=== PATIENT | male | born 1965 | race African-American/Black ===

== ENCOUNTER 2016-06-14 08:55 | Emergency (ER) | payer OTHER ==
[~2016-06-14] VITALS: Ht 188 cm; Wt 98.8 kg
[~2016-06-14 08:55] MED LIST: DICY1TAB26 PO; PENI500T PO; ULTR50TA PO; ZOFR4TAB3 SL
[2016-06-14 09:05] VITALS: BP 126/97; PULSE 80; RESP 16; TEMP 98.1; O2SAT 97
--- NOTE | 2016-06-14 09:24 | PD ---
HPI Chief Complaint: Injury Time Seen by Provider: 09:17 Travel History International Travel<30 days: No Contact w/Intl Traveler<30days: No Traveled to known affect area: No History of Present Illness HPI 50-year-old male presents with left elbow pain after he fell on it earlier today. He did not hit his head or black out. He denies other concurrent complaints. Pain is worse with movement and goes down his arm. He denies other modifying factors. Quality pain is sharp. Severity is moderate. He denies taking blood thinner medication. PFSH Past Medical History Arthritis: No Asthma: No Autoimmune Disease: No Blood Disorders: No Bipolar Disorder: Yes Anxiety: Yes Depression: Yes Heart Rhythm Problems: No Cancer: No Cardiovascular Problems: No High Cholesterol: No Chemotherapy: No Chest Pain: No Congestive Heart Failure: No COPD: No Cerebrovascular Accident: No Diabetes: No Diminished Hearing: No Endocrine: No Gastrointestinal Disorders: No GERD: No Glaucoma: No Genitourinary: No Headaches: Yes Hepatitis: No Hiatal Hernia: No Hypertension: No Kidney Stones: No Musculoskeletal: Yes (REPORTS CHRONIC BACK PAIN) Neurologic: No Psychiatric: Yes Reproductive: No Respiratory: Yes (BRONCHITIS) Myocardial Infarction: Yes Radiation Therapy: No Renal Failure: No Schizophrenia: Yes Seizures: No Sickle Cell Disease: No Sleep Apnea: No Thyroid Disease: No Ulcer: No Tetanus Vaccination: < 5 Years Past Surgical History Surgical History: No Previous Surgery AICD: No Pacemaker: No Other Surgery: No Social History Alcohol Use: No Tobacco Use: Yes (04/22 PPD ) Substance Use: Yes (smokes marijuana, history of cocaine, denies IV drug abuse) Allergies-Medications (Allergen,Severity, Reaction): Coded Allergies: Dust (Verified Allergy, Severe, SNEEZE RUNNY NOS4E STUFFY, 06/14/16) Ibuprofen (Verified Allergy, Severe, STOMACH PAIN, 06/14/16) Uncoded Allergies: DARVOCET (Allergy, Severe, 11/11/11) Reported Meds & Prescriptions Reported Meds & Active Scripts Active Percocet (Oxycodone-Acetaminophen) 5-325 mg Tab 1 Tab PO Q6H PRN Review of Systems Except as stated in HPI: all other systems reviewed are Neg Physical Exam Narrative General: 50 y/o patient in no apparent distress Skin: trauma noted to left elbow with swelling Eyes: Pupils equal NECK: no pain with palpation, nexus criteria negative Cardiovascular: Regular rate and rhythm Respiratory: Normal respiratory effort noted Abdomen: soft, nontender, nondistended Extremities: Pain with palpation of left elbow, no lacerations over, neurovascularly intact, no pain with palpation of other joints Neuro: awake, alert, sensation and motor grossly intact Data Data Last Documented VS Vital Signs Date Time Temp Pulse Resp B/P Pulse Ox O2 Delivery O2 Flow Rate FiO2 06/14/16 09:05 98.1 80 16 126/97 97 Orders Elbow, Complete (4 Vws) (06/14/16 09:19) Forearm (2vws) (06/14/16 09:19) Ketorolac Inj (Toradol Inj) (06/14/16 09:30) Splint Or Brace Apply/Monitor (06/14/16 11:35) MDM Medical Decision Making Medical Screen Exam Complete: Yes Emergency Medical Condition: Yes Medical Record Reviewed: Yes (past history confirmed) Interpretation(s) Last 24 hours Impressions Radius/Ulna X-Ray 06/14/16918 Signed Impressions: Service Date/Time: Tuesday, June 14, 2016 10:54 - CONCLUSION: Normal examination for a patient of this age. Kieran Steiner MD Elbow X-Ray 06/14/16918 Signed Impressions: Service Date/Time: Tuesday, June 14, 2016 10:51 - CONCLUSION: Normal examination for a patient of this age. Kieran Steiner MD Differential Diagnosis Fracture, strain, sprain Narrative Course We'll check x-ray and dose with Toradol and reevaluate X-ray without fracture, patient states he still having significant pain, will provide with Toradol prescription for home and place and splint for possible nondisplaced radial head fracture. He understands he should follow-up in one week for repeat x-ray through his primary care physician for recheck. Given return instructions Diagnosis Primary Impression: Elbow strain Qualified Code: S56.912A - Elbow strain, left, initial encounter Patient Instructions: General Instructions Additional Instructions: return as needed, follow with primary in one week for repeat xray and recheck, percocet as needed for severe pain Med/Other Pt SpecificInfo: Prescription(s) given, No Change to Meds Scripts Oxycodone-Acetaminophen (Percocet)5-325 mg Tab1 Tab PO Q6H PRN (PAIN) #15 TAB Prov:Ladi Graves MD 06/14/16 Disposition: 01 DISCHARGE HOME Condition: Stable Ladi Graves MD Jun 14, 2016 09:24
[2016-06-14] MEDS ORDERED: KETOROLAC TROMETHAMINE 60 MG/2 ML (IM) VIAL IM ONE (09:30)
--- NOTE | 2016-06-14 11:08 | RADHPO ---
EXAM DATE/TIME: 06/14/2016 10:51 [facility] COMPARISON: No previous studies available for comparison. INDICATIONS : Left elbow pain post fall down stairs. MEDICAL HISTORY : Myocardial infarction. SURGICAL HISTORY : None. ENCOUNTER: Initial ACUITY: 1 day PAIN SCORE: 10/10 LOCATION: Left elbow FINDINGS: Multiple view examination of the left elbow demonstrates no soft tissue swelling, joint effusion, or fracture. The osseous structures are in normal alignment. Bony mineralization is normal. CONCLUSION: Normal examination for a patient of this age. Kieran Steiner MD on June 14, 2016 at 11:06 Board Certified Radiologist. This report was verified electronically.
--- NOTE | 2016-06-14 11:09 | RADHPO ---
EXAM DATE/TIME: 06/14/2016 10:54 [facility] COMPARISON: No previous studies available for comparison. INDICATIONS : Left forearm. MEDICAL HISTORY : Myocardial infarction. SURGICAL HISTORY : None. ENCOUNTER: Initial ACUITY: 1 day PAIN SCORE: 10/10 LOCATION: Left forearm FINDINGS: Two view examination of the left forearm demonstrates no evidence of fracture or dislocation. Bony m ineralization is normal. The soft tissue structures are intact. CONCLUSION: Normal examination for a patient of this age. Kieran Steiner MD on June 14, 2016 at 11:07 Board Certified Radiologist. This report was verified electronically.
[2016-06-14] MEDS ORDERED: PERC5TAB12 PO (11:34)
== END 2016-06-14 12:01 | disposition home or self-care (01) ==
LOC: PHEFT 08:55
DX: S56.912A Strain of unspecified muscles, fascia and tendons at forearm level, left arm, initial encounter (principal); W19.XXXA Unspecified fall, initial encounter
CPT/HCPCS: 29105; 73080; 73090; 96372; 99283; J1885

== ENCOUNTER 2016-06-24 13:20 | Emergency (ER) | payer OTHER ==
[~2016-06-24] VITALS: Ht 172.7 cm; Wt 90.5 kg
[~2016-06-24 13:20] MED LIST changes: -DICY1TAB26 PO; -PENI500T PO; +PERC5TAB12 PO; -ULTR50TA PO; -ZOFR4TAB3 SL
[2016-06-24 13:28] VITALS: BP 138/83; PULSE 90; RESP 16; TEMP 98.5; O2SAT 95
--- NOTE | 2016-06-24 14:29 | PD ---
HPI Chief Complaint: Wound/Suture/Staple Re-Check Time Seen by Provider: 14:20 Travel History International Travel<30 days: No Contact w/Intl Traveler<30days: No Traveled to known affect area: No History of Present Illness HPI 50-year-old male presents for left elbow recheck. The patient was seen here on June 14 after falling on some stairs and landing on his left elbow. He had x-rays of left elbow and forearm which revealed no acute abnormalities. There is concern for possible occult radial head fracture and so he was placed in a splint and advised to follow-up with a primary care physician in one week for recheck. He presents now for recheck. He continues to have some pain in left elbow with has decreased. He is no longer wearing the splints because he says that his dog chewed the splint off. He denies any new injuries. He has no other complaints. PFSH Past Medical History Arthritis: No Asthma: No Autoimmune Disease: No Blood Disorders: No Bipolar Disorder: Yes Anxiety: Yes Depression: Yes Heart Rhythm Problems: No Cancer: No Cardiovascular Problems: No High Cholesterol: No Chemotherapy: No Chest Pain: No Congestive Heart Failure: No COPD: No Cerebrovascular Accident: No Diabetes: No Diminished Hearing: No Endocrine: No Gastrointestinal Disorders: No GERD: No Glaucoma: No Genitourinary: No Headaches: Yes Hepatitis: No Hiatal Hernia: No Hypertension: No Kidney Stones: No Musculoskeletal: Yes (REPORTS CHRONIC BACK PAIN) Neurologic: No Psychiatric: Yes Reproductive: No Respiratory: Yes (BRONCHITIS) Myocardial Infarction: Yes Radiation Therapy: No Renal Failure: No Schizophrenia: Yes Seizures: No Sickle Cell Disease: No Sleep Apnea: No Thyroid Disease: No Ulcer: No Influenza Vaccination: No ?: Not Past Surgical History Surgical History: No Previous Surgery AICD: No Pacemaker: No Other Surgery: No Social History Alcohol Use: Yes (OCC) Tobacco Use: Yes (1/2 PPD ) Substance Use: Yes (smokes marijuana, history of cocaine, denies IV drug abuse) Allergies-Medications (Allergen,Severity, Reaction): Coded Allergies: Darvocet-N 100 (Verified Allergy, Severe, 06/24/16) Dust (Verified Allergy, Severe, SNEEZE RUNNY NOS4E STUFFY, 06/24/16) Ibuprofen (Verified Allergy, Severe, STOMACH PAIN, 3/6/17) Reported Meds & Prescriptions Reported Meds & Active Scripts Active Percocet (Oxycodone-Acetaminophen) 5-325 mg Tab 1 Tab PO Q6H PRN Review of Systems Musculoskeletal: Positive: Pain, No: Limited ROM Skin: Positive Other (no open wounds or bruising.) Physical Exam Narrative GENERAL: Well-developed well-nourished male sleeping upon initial examination but arousable. SKIN: Warm and dry. No bruising or soft tissue swelling CARDIOVASCULAR: Regular rate and rhythm. No murmur appreciated. RESPIRATORY: No accessory muscle use. Clear to auscultation. Breath sounds equal bilaterally. Extremities: Some tenderness to palpation to the lateral aspect of left ankle joint. No joint effusion. The patient maintains full range of motion of the left elbow. Data Data Last Documented VS Vital Signs Date Time Temp Pulse Resp B/P Pulse Ox O2 Delivery O2 Flow Rate FiO2 06/24/16 13:28 98.5 90 16 138/83 95 Orders Elbow, Complete (4 Vws) (06/24/16 ) [facility] Medical Decision Making Medical Screen Exam Complete: Yes Emergency Medical Condition: Yes Medical Record Reviewed: Yes Differential Diagnosis Healing occult radial head fracture, contusion, bursitis, strain, sprain Narrative Course Repeat x-ray reveals no evidence of a healing occult radial head fracture, no periosteal reaction or bone callus. Likely the patient sprained his elbow. He is stable for discharge. Diagnosis Primary Impression: Sprain of left elbow Qualified Code: S53.402A - Sprain of left elbow, initial encounter Additional Instructions: Follow-up with primary care physician if symptoms persist. Return for any emergent medical conditions. Med/Other Pt SpecificInfo: No Change to Meds Disposition: 01 DISCHARGE HOME Condition: Stable Marques Sheehan Jun 24, 2016 14:29
--- NOTE | 2016-06-24 15:12 | RADHPO ---
EXAM DATE/TIME: 06/24/2016 14:37 [facility] COMPARISON: ELBOW LEFT COMPLETE (4 VWS), June 14, 2016, 10:51. INDICATIONS : Pain from fall. MEDICAL HISTORY : None. SURGICAL HISTORY : None. ENCOUNTER: Subsequent ACUITY: 1 week PAIN SCORE: 5/10 LOCATION: Left elbow. FINDINGS: Multiple view examination of the left elbow demonstrates no soft tissue swelling, joint effusion, or fracture. The osseous structures are in normal alignment. Bony mineralization is normal. CONCLUSION: 1. Negative examination of the elbow. Jorge Drake MD on June 24, 2016 at 15:10 Board Certified Radiologist. This report was verified electronically.
== END 2016-06-24 15:33 | disposition home or self-care (01) ==
LOC: PHED 13:20 → PHEFT 15:33
DX: S53.402A Unspecified sprain of left elbow, initial encounter (principal); W10.9XXA Fall (on) (from) unspecified stairs and steps, initial encounter
CPT/HCPCS: 73080; 99283

== ENCOUNTER 2016-07-11 11:46 | Emergency (ER) | payer OTHER ==
[~2016-07-11] VITALS: Ht 188 cm; Wt 100.0 kg
[2016-07-11 11:47] VITALS: BP 147/87; PULSE 88; RESP 15; TEMP 98.2; O2SAT 98
--- NOTE | 2016-07-11 12:06 | PD ---
HPI Chief Complaint: Cold / Flu Symptoms Time Seen by Provider: 11:58 Travel History International Travel<30 days: No Contact w/Intl Traveler<30days: No Traveled to known affect area: No History of Present Illness HPI This is a 50-year-old male who presents to the emergency department having reportedly had a fall yesterday off of a ladder that was 15 feet tall. He reports that he doesn't think he hit his head in its not bothering him. The only thing that is bothering him is his right shoulder. He reports moderate severity pain in his right shoulder, constant, worse with movement, improved with rest, described as a "pinching sensation". He does say he has some chest discomfort but he thinks this is from his cold. He's had a runny nose and a cough for several days. He Thinks that is what made him fall because he sneezed and then he fell off of the ladder. PFSH Past Medical History Arthritis: No Asthma: No Autoimmune Disease: No Blood Disorders: No Bipolar Disorder: Yes Anxiety: Yes Depression: Yes Heart Rhythm Problems: No Cancer: No Cardiovascular Problems: No High Cholesterol: No Chemotherapy: No Chest Pain: No Congestive Heart Failure: No COPD: No Cerebrovascular Accident: No Diabetes: No Diminished Hearing: No Endocrine: No Gastrointestinal Disorders: No GERD: No Glaucoma: No Genitourinary: No Headaches: Yes Hepatitis: No Hiatal Hernia: No Hypertension: No Kidney Stones: No Musculoskeletal: Yes (REPORTS CHRONIC BACK PAIN) Neurologic: No Psychiatric: Yes Reproductive: No Respiratory: Yes (BRONCHITIS) Myocardial Infarction: Yes Radiation Therapy: No Renal Failure: No Schizophrenia: Yes Seizures: No Sickle Cell Disease: No Sleep Apnea: No Thyroid Disease: No Ulcer: No Past Surgical History AICD: No Pacemaker: No Other Surgery: No Social History Alcohol Use: Yes (OCC) Tobacco Use: Yes (1/2 PPD ) Substance Use: Yes (smokes marijuana, history of cocaine, denies IV drug abuse) Allergies-Medications (Allergen,Severity, Reaction): Coded Allergies: Darvocet-N 100 (Verified Allergy, Severe, 07/11/16) Dust (Verified Allergy, Severe, SNEEZE RUNNY NOS4E STUFFY, 07/11/16) Ibuprofen (Verified Allergy, Severe, STOMACH PAIN, 07/11/16) Reported Meds & Prescriptions Reported Meds & Active Scripts Active Percocet (Oxycodone-Acetaminophen) 5-325 mg Tab 1 Tab PO Q6H PRN Review of Systems Except as stated in HPI: all other systems reviewed are Neg Physical Exam Narrative GENERAL:Well appearing, no acute distress SKIN: Warm and dry. HEAD: Atraumatic. Normocephalic. EYES: Pupils equal and round. No injection or drainage. ENT: Moist mucous membranes NECK: Trachea midline. No cervical spine tenderness and full painless range of motion of the neck. CARDIOVASCULAR: Regular rate and rhythm. No murmur appreciated. RESPIRATORY: Clear to auscultation. Breath sounds equal bilaterally. GASTROINTESTINAL: Abdomen soft, non-tender, nondistended. MUSCULOSKELETAL: Some tenderness to palpation over the proximal humerus and right clavicle. Full range of motion of the right shoulder. No obvious deformities. No focal tenderness to the thoracic or lumbar spine. NEUROLOGICAL: Awake and alert. No obvious cranial nerve deficits. Moving all extremities. PSYCHIATRIC: Appropriate mood and affect; insight and judgment normal. Data Data Last Documented VS Vital Signs Date Time Temp Pulse Resp B/P Pulse Ox O2 Delivery O2 Flow Rate FiO2 07/11/16 11:47 98.2 88 15 147/87 98 Orders Chest, Single Ap (07/11/16 ) Shoulder, Complete (>2vws) (07/11/16 ) MDM Medical Decision Making Medical Screen Exam Complete: Yes Emergency Medical Condition: Yes Interpretation(s) Afebrile, no tachycardia, hypertensive Differential Diagnosis Proximal humerus fracture, shoulder dislocation, clavicle fracture, pneumothorax , rib fracture Narrative Course This is a 50-year-old male who presents to the emergency department reportedly having fallen off a 15 foot ladder yesterday. He is complaining of some shoulder pain. Otherwise he really has no complaints. His exam is inconsistent with someone that fell off of a ladder of appetite. He is very well-appearing, resting comfortably in bed and has good range of motion of the right shoulder with a normal neurovascular exam. X-rays are reassuring on my read. Patient was discharged home with anti-inflammatories. Diagnosis Primary Impression: Sprain of right shoulder Qualified Code: S43.401A - Sprain of right shoulder, unspecified shoulder sprain type, initial encounter Patient Instructions: General Instructions Additional Instructions: If you develop headache, difficulty walking, difficulty talking, weakness, numbness, lightheadedness or severe pain return to the emergency department. It is common to have sore muscles following an accident. Take ibuprofen 600 mg every 6 hours as needed for pain. If you are not improved in 2 days follow up with your primary care physician without fail. Med/Other Pt SpecificInfo: Prescription(s) given Scripts Naproxen 500 Mg [id number] Mg PO BID PRN (PAIN SCALE 4 TO 10) #20 TAB Prov:Kendra Serra MD 07/11/16 Disposition: 01 DISCHARGE HOME Condition: Stable Kendra Serra MD Jul 11, 2016 12:06
[2016-07-11] MEDS ORDERED: NAPR500T PO (12:27)
--- NOTE | 2016-07-11 12:39 | RADRPT ---
EXAM DATE/TIME: 07/11/2016 12:21 [facility] COMPARISON: No previous studies available for comparison. INDICATIONS : Chest pain after fall from ladder. MEDICAL HISTORY : None. SURGICAL HISTORY : None. ENCOUNTER: Initial ACUITY: 2 days PAIN SCORE: 1/10 LOCATION: Right chest FINDINGS: A single view of the chest demonstrates the lungs to be symmetrically aerated without evidence of mas s, infiltrate or effusion. The cardiomediastinal contours are unremarkable. Osseous structures are intact. CONCLUSION: No acute cardiopulmonary process. Tl Lo MD on July 11, 2016 at 12:37 Board Certified Radiologist. This report was verified electronically.
--- NOTE | 2016-07-11 12:40 | RADRPT ---
EXAM DATE/TIME: 07/11/2016 12:22 [facility] COMPARISON: No previous studies available for comparison. INDICATIONS : Right shoulder pain after fall from ladder. MEDICAL HISTORY : None. SURGICAL HISTORY : None. ENCOUNTER: Initial ACUITY: 2 days PAIN SCORE: 10/10 LOCATION: Right shoulder. FINDINGS: Multiple view examination of the right shoulder demonstrates no evidence of fracture or dislocation. The glenohumeral and acromioclavicular joints are maintained. There is normal range of motion betwe en internal and external rotation. Bony mineralization is normal. CONCLUSION: No acute osseous injury or significant degenerative changes. Tl Lo MD on July 11, 2016 at 12:38 Board Certified Radiologist. This report was verified electronically.
== END 2016-07-11 13:02 | disposition home or self-care (01) ==
LOC: NEPB 11:46
DX: S43.401A Unspecified sprain of right shoulder joint, initial encounter (principal); W11.XXXA Fall on and from ladder, initial encounter
CPT/HCPCS: 71010; 73030; 99283

== ENCOUNTER 2016-07-17 16:10 | Emergency (ER) | payer OTHER ==
[~2016-07-17] VITALS: Ht 188 cm; Wt 100.0 kg
[~2016-07-17 16:10] MED LIST changes: +NAPR500T PO
[2016-07-17 16:11] VITALS: BP 130/86; PULSE 89; RESP 20; TEMP 98.3; O2SAT 99
--- NOTE | 2016-07-17 17:13 | PD ---
HPI Chief Complaint: Injury Time Seen by Provider: 17:13 Travel History International Travel<30 days: No Contact w/Intl Traveler<30days: No Traveled to known affect area: No History of Present Illness HPI 50-year-old male presents to the emergency department requesting pain medications for right shoulder pain 1 week. He said he fell a week ago and landed on his right shoulder. He was evaluated and had an x-ray and was told to come back to the emergency department if he continued to have pain. He had taken the naproxen as prescribed but it has not been helping with the pain. He denies paresthesias, loss of sensation to the affected extremity. Reports decreased range of motion secondary to pain to the right shoulder. Denies fever , chills, nausea, vomiting. Has not tried any other medications or treatments to alleviate his symptoms. Has not followed up outpatient for continued care and evaluation of the shoulder. Allergies to Darvocet, dust, ibuprofen. No other medical complaints. No other modifying factors or associated signs and symptoms. History Past Medical Histgory Hx Cancer: No Hx Chemotherapy: No Hx Radiation Therapy: No Social History Alcohol Use: No (everyday) Tobacco Use: Yes Allergies-Medications (Allergen,Severity, Reaction): Coded Allergies: Darvocet-N 100 (Verified Allergy, Severe, 07/17/16) Dust (Verified Allergy, Severe, SNEEZE RUNNY NOS4E STUFFY, 07/17/16) Ibuprofen (Verified Allergy, Severe, STOMACH PAIN, 07/17/16) Reported Meds & Prescriptions Reported Meds & Active Scripts Active Naproxen 500 Mg Tab 500 Mg PO BID PRN Percocet (Oxycodone-Acetaminophen) 5-325 mg Tab 1 Tab PO Q6H PRN Review of Systems Except as stated in HPI: all other systems reviewed are Neg Physical Exam Narrative GENERAL: Well-nourished, well-developed male patient, in no acute distress SKIN: Warm and dry. HEAD: Atraumatic. Normocephalic. EYES: Pupils equal and round. No scleral icterus. No injection or drainage. ENT: Mucosa pink and moist. Airway patent. NECK: Supple. Trachea midline. CARDIOVASCULAR: Regular rate. RESPIRATORY: No accessory muscle use. GASTROINTESTINAL: Rounded. MUSCULOSKELETAL: Right shoulder is with full range of motion greater than 45 abduction; no obvious deformity; shoulders equal; without erythema, edema, ecchymosis; joint stable. Right upper extremity is supple and non-tense with 2 + radial pulse and sensory intact without erythema or edema. No obvious deformities. No clubbing. No cyanosis. No edema. NEUROLOGICAL: Awake and alert. Oriented 3. No obvious cranial nerve deficits. Motor grossly within normal limits. Normal speech. PSYCHIATRIC: Appropriate mood and affect; insight and judgment normal. Data Data Last Documented VS Vital Signs Date Time Temp Pulse Resp B/P Pulse Ox O2 Delivery O2 Flow Rate FiO2 07/17/16 16:11 98.3 89 20 130/86 99 Room Air MDM Medical Screen Exam Complete: Yes Emergency Medical Condition: No Differential Diagnosis Necrotic seeking, medication refill, medical clearance Narrative Course 50-year-old male requesting pain medication for right shoulder sprain times one week ago. He was evaluated on July 11, here at [facility], and an x-ray of the right shoulder showed no acute injury. He has not followed up outpatient. He has no other medical complaints. Vital signs are stable and the patient is stable for outpatient follow-up and treatment. The patient has no urgent or emergent medical complaints. There is no emergent or urgent medical need at this time. I instructed the patient to follow up with their primary care provider. A medical screening exam was performed: At the time of evaluation the presenting medical condition was determined not to be of an emergent nature. The patient was given the option of receiving additional care, but declined. Patient was given options for additional community resources from which to obtain care. The Patient Has Been advised to seek medical attention for their presenting complaint. The patient has been advised to return to the ER at any time if an emergent condition develops. Primary Impression: Encounter for medical screening examination Condition: Stable Zakia Johnson Jul 17, 2016 17:13
== END 2016-07-17 17:19 | disposition left against medical advice (07) ==
LOC: NEPB 16:10
DX: M25.511 Pain in right shoulder (principal); Z72.0 Tobacco use
CPT/HCPCS: 99281

== ENCOUNTER 2016-08-11 17:10 | Emergency (ER) | payer OTHER ==
[~2016-08-11] VITALS: Ht 188 cm; Wt 97.0 kg
[2016-08-11 17:21] VITALS: BP 124/83; PULSE 78; RESP 16; TEMP 98.6; O2SAT 98
--- NOTE | 2016-08-11 17:40 | PD ---
HPI Chief Complaint: Cold / Flu Symptoms Time Seen by Provider: 17:38 Travel History International Travel<30 days: No Contact w/Intl Traveler<30days: No Traveled to known affect area: No History of Present Illness HPI Patient comes in complaining of a nonproductive cough ongoing for approximately 4 days. Patient reports associated subjective fevers. Denies any nausea, vomiting, diarrhea, abdominal pain, headache, chest pain, numbness or tingling anywhere. Patient states he's taken some NyQuil for this with minimal to no relief of symptoms. Patient reports he has cough so much that it has caused his low back to hurt. Patient's significant other with similar symptoms. PFSH Past Medical History Arthritis: No Asthma: No Autoimmune Disease: No Blood Disorders: No Bipolar Disorder: Yes Anxiety: Yes Depression: Yes Heart Rhythm Problems: No Cancer: No Cardiovascular Problems: No High Cholesterol: No Chemotherapy: No Chest Pain: No Congestive Heart Failure: No COPD: No Cerebrovascular Accident: No Diabetes: No Diminished Hearing: No Endocrine: No Gastrointestinal Disorders: No GERD: No Glaucoma: No Genitourinary: No Headaches: Yes Hepatitis: No Hiatal Hernia: No Hypertension: No Kidney Stones: No Musculoskeletal: Yes (REPORTS CHRONIC BACK PAIN) Neurologic: No Psychiatric: Yes Reproductive: No Respiratory: Yes (BRONCHITIS) Myocardial Infarction: Yes Radiation Therapy: No Renal Failure: No Schizophrenia: Yes Seizures: No Sickle Cell Disease: No Sleep Apnea: No Thyroid Disease: No Ulcer: No Influenza Vaccination: No Past Surgical History Surgical History: No Previous Surgery AICD: No Pacemaker: No Other Surgery: No Social History Alcohol Use: No (DAILY) Tobacco Use: Yes (1/2 PPD) Substance Use: No Allergies-Medications (Allergen,Severity, Reaction): Coded Allergies: Dust (Verified Allergy, Severe, SNEEZE RUNNY NOS4E STUFFY, 08/11/16) Ibuprofen (Verified Allergy, Severe, STOMACH PAIN, 08/11/16) Aspirin (Verified Adverse Reaction, Intermediate, nausea, 08/11/16) Reported Meds & Prescriptions Reported Meds & Active Scripts Active Ventolin Hfa 18 GM Inh (Albuterol Sulfate) 90 Mcg/Act Aer 2 Puff INH Q4H PRN Review of Systems Except as stated in HPI: all other systems reviewed are Neg Physical Exam Narrative GENERAL: Well-developed, overly nourished, in no acute distress, and non-ill appearing. SKIN: Focused skin assessment warm and dry. HEAD: Atraumatic. Normocephalic. EYES: Pupils equal and round. EOMI. No scleral icterus. No injection or drainage. ENT: No nasal bleeding or discharge. Mucous membranes pink and moist. Tympanic membranes pearly sosa bilaterally. Posterior pharynx nonerythematous without exudate. Uvula is midline. No tenderness to facial sinuses to palpation. NECK: Trachea midline. No cervical lymphadenopathy. Supple. No nuclear rigidity. CARDIOVASCULAR: Regular rate and rhythm. No murmur appreciated. RESPIRATORY: No accessory muscle use. No respiratory distress. Clear to auscultation. Breath sounds equal bilaterally. MUSCULOSKELETAL: No obvious deformities. No clubbing. No cyanosis. No edema. Full range of motion. NEUROLOGICAL: Awake and alert. No obvious cranial nerve deficits. Motor grossly within normal limits. Normal speech. PSYCHIATRIC: Appropriate mood and affect; insight and judgment normal. Data Data Last Documented VS Vital Signs Date Time Temp Pulse Resp B/P Pulse Ox O2 Delivery O2 Flow Rate FiO2 08/11/16 17:21 98.6 78 16 124/83 98 Orders Chest, Single Ap (08/11/16 ) [facility] Medical Decision Making Medical Screen Exam Complete: Yes Emergency Medical Condition: Yes Differential Diagnosis Upper respiratory infection, pneumonia, bronchitis, viral syndrome, other Narrative Course Patients symptom complex is consistent with bronchitis. The patient is non-ill appearing and is in no respiratory distress and comfortable. The patient moves air well and oxygen saturations are normal. Chest x-ray revealed no evidence of obvious consolidation of infiltrate. There is no clinical evidence to suggest pneumonia at this time. Plan of care and management were discussed with the patient who agreed with plan. The patient was instructed to follow up with their physician and instructed to return if worsens, progressively worsening shortness of breath or difficulty breathing, persistent fever, chest pains or discomfort, inability to keep medication or fluids down with or without vomiting , or as needed. Patient in no obvious distress upon re-evaluation. All pertinent Radiology result(s) discussed with patient. Patient was asked if they wanted to speak to my attending, which the patient did not wish to do at this time. Any questions/ concerns in reference to patient diagnosis/condition discussed and clarified prior to patient's discharge. Reinforced sheer importance of close follow up with patient's primary physician or primary care clinic. Instructed patient to return to ED immediately, if symptoms return/worsen. Pt showed understanding of above instructions. Further instructions and recommendations were detailed in discharge paperwork. Pt ambulated without difficulty out of ED at discharge. Diagnosis Primary Impression: Bronchitis Patient Instructions: Acute Bronchitis (ED), General Instructions Additional Instructions: Follow-up with your primary care physician in 2-3 days for evaluation. Take all medication as prescribed. Use [id number] cold and flu medication for symptomatic relief. Follow instructions on the packaging. Drink plenty of non- caffeinated and nonalcoholic fluids. Return to the emergency department if symptoms get worse. Med/Other Pt SpecificInfo: Prescription(s) given Scripts Albuterol 18 GM Inh (Ventolin Hfa 18 GM Inh)90 Mcg/Act Aer2 Puff INH Q4H PRN ( COUGH) #1 INHALER Ref 0 Prov:Salvatore Acosta MD 08/11/16 Disposition: 01 DISCHARGE HOME Condition: Stable Michael Samuel Aug 11, 2016 17:40
--- NOTE | 2016-08-11 18:52 | RADHPO ---
EXAM DATE/TIME: 08/11/2016 18:17 [facility] COMPARISON: CHEST SINGLE AP, July 11, 2016, 12:21. INDICATIONS : Short of breath, fever, cough, chest pain with cough MEDICAL HISTORY : None. SURGICAL HISTORY : None. ENCOUNTER: Initial ACUITY: 4 - 6 days PAIN SCORE: 7/10 LOCATION: Bilateral chest FINDINGS: A single view of the chest demonstrates the lungs to be symmetrically aerated without evidence of mas s, infiltrate or effusion. The cardiomediastinal contours are unremarkable. Osseous structures are intact. CONCLUSION: The lungs are clear. Manuel Fields MD on August 11, 2016 at 18:50 Board Certified Radiologist. This report was verified electronically.
[2016-08-11] MEDS ORDERED: VENTAER INH (19:19)
== END 2016-08-11 19:33 | disposition home or self-care (01) ==
LOC: PHEFT 17:10
DX: J40 Bronchitis, not specified as acute or chronic (principal); F17.210 Nicotine dependence, cigarettes, uncomplicated; G89.29 Other chronic pain; M54.9 Dorsalgia, unspecified; I25.2 Old myocardial infarction
CPT/HCPCS: 71010; 99283

== ENCOUNTER 2016-09-12 13:51 | Emergency (ER) | payer OTHER ==
[~2016-09-12] VITALS: Ht 188 cm; Wt 96.0 kg
[~2016-09-12 13:51] MED LIST changes: -NAPR500T PO; -PERC5TAB12 PO; +VENTAER INH
[2016-09-12 13:54] VITALS: BP 122/93; PULSE 80; RESP 18; TEMP 97.8; O2SAT 98
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
[2016-09-12] MEDS ORDERED: TETANUS/DIPHTHERIA TOXOID ADULT 0.5 ML VIAL IM ONE (14:00)
[2016-09-12] MEDS ORDERED: LIDOCAINE 1%/EPINEPHrine 1:100,000 SOLN 20 ML VIAL INFIL ONE (14:00)
[2016-09-12] MEDS ORDERED: ACETAMINOPHEN/HYDROcodone 325 MG/5 MG TAB PO ONE (14:30)
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
== END 2016-09-12 14:41 | disposition home or self-care (01) ==
LOC: PHEFT 13:51
DX: S61.411A Laceration without foreign body of right hand, initial encounter (principal); F20.9 Schizophrenia, unspecified; I25.2 Old myocardial infarction; F31.9 Bipolar disorder, unspecified; F17.200 Nicotine dependence, unspecified, uncomplicated; Z23 Encounter for immunization; Y04.2XXA Assault by strike against or bumped into by another person, initial encounter
CPT/HCPCS: 12001; 73120; 90471; 90714

== ENCOUNTER 2016-11-30 17:03 | Emergency (ER) | payer OTHER ==
[~2016-11-30] VITALS: Ht 188 cm; Wt 93.5 kg
[2016-11-30 17:06] VITALS: BP 154/64; PULSE 90; RESP 18; TEMP 98.6; O2SAT 96
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
--- NOTE | 2016-11-30 18:14 | RADRPT ---
EXAM DATE/TIME: 11/30/2016 17:48 [facility] COMPARISON: No previous studies available for comparison. INDICATIONS : Trauma to right hand. MEDICAL HISTORY : Myocardial infarction. SURGICAL HISTORY : None. ENCOUNTER: Initial ACUITY: 1 day PAIN SCORE: 10/10 LOCATION: Right upper extremity hand FINDINGS: 3 views right hand. Mildly comminuted fracture of the fifth metacarpal neck. Approximately 50 medial angulation of the distal fragment CONCLUSION: Fifth metacarpal neck fracture. Kale Hayes MD on November 30, 2016 at 18:11 Board Certified Radiologist. This report was verified electronically.
[2016-11-30] MEDS ORDERED: ACETAMINOPHEN/HYDROcodone 325 MG/5 MG TAB PO ONE (18:30)
[2016-11-30] MEDS ORDERED: HYDR-3533 PO (19:20)
[2016-11-30 19:45] VITALS: RESP 14
== END 2016-11-30 19:55 | disposition home or self-care (01) ==
LOC: PHED 17:03 → PHEFT 19:55
DX: S62.336A Displaced fracture of neck of fifth metacarpal bone, right hand, initial encounter for closed fracture (principal); W01.0XXA Fall on same level from slipping, tripping and stumbling without subsequent striking against object, initial encounter
CPT/HCPCS: 29125; 73130

== ENCOUNTER 2016-12-13 14:39 | Emergency (ER) | payer OTHER ==
[~2016-12-13] VITALS: Ht 188 cm; Wt 93.4 kg
[~2016-12-13 14:39] MED LIST changes: +HYDR-3533 PO; -VENTAER INH
[2016-12-13 14:48] VITALS: BP 124/83; PULSE 98; RESP 18; TEMP 98.5; O2SAT 99
[2016-12-13] MEDS ORDERED: RABIES VACCINE CHICK EMB INJ 2.5 UNITS/ML SYR IM ONE (16:15)
[2016-12-13] MEDS ORDERED: RABIES IMMUNE GLOBULIN INJ 1,500 UNITS/10 ML VIAL IM ONE (16:15)
[2016-12-13] MEDS ORDERED: AMOXICILLIN/CLAVULANATE K 875 MG TAB PO ONE (16:15)
--- NOTE | 2016-12-13 16:43 | PD ---
HPI Chief Complaint: Bite or Sting Time Seen by Provider: 15:55 Travel History International Travel<30 days: No Contact w/Intl Traveler<30days: No Traveled to known affect area: No History of Present Illness HPI 51-year-old male presents to the emergency room for evaluation of a dog bite to his left hand that occurred just prior to arrival. Patient was walking down the road when a random Pit Bull dog jumped out of the bushes and bit his hand. States the dog ran off. He does not know where the dog lives or its vaccination status. He immediately applied pressure and came to the emergency room without washing it off. Reports extreme pain to the left proximal thumb with any range of motion of the thumb. Last tetanus was one month ago. He has never had a rabies vaccination. Denies paresthesias. PFSH Past Medical History Arthritis: No Asthma: No Autoimmune Disease: No Blood Disorders: No Bipolar Disorder: Yes Anxiety: Yes Depression: Yes Heart Rhythm Problems: No Cancer: No Cardiovascular Problems: No High Cholesterol: No Chemotherapy: No Chest Pain: No Congestive Heart Failure: No COPD: No Cerebrovascular Accident: No Diabetes: No Diminished Hearing: No Endocrine: No Gastrointestinal Disorders: No GERD: No Glaucoma: No Genitourinary: No Headaches: Yes Hepatitis: No Hiatal Hernia: No Hypertension: No Kidney Stones: No Musculoskeletal: Yes (REPORTS CHRONIC BACK PAIN) Neurologic: No Psychiatric: Yes Reproductive: No Respiratory: Yes (BRONCHITIS) Myocardial Infarction: Yes Radiation Therapy: No Renal Failure: No Schizophrenia: Yes Seizures: No Sickle Cell Disease: No Sleep Apnea: No Thyroid Disease: No Ulcer: No Tetanus Vaccination: < 5 Years Influenza Vaccination: No Past Surgical History AICD: No Pacemaker: No Other Surgery: No Social History Alcohol Use: No (DAILY, BEER 4 PK) Tobacco Use: Yes (1/2 PPD) Substance Use: Yes (MARIJUANA) Allergies-Medications (Allergen,Severity, Reaction): Coded Allergies: house dust (Unverified Allergy, Severe, SNEEZE RUNNY NOS4E STUFFY, 12/13/16 ) ibuprofen (Unverified Allergy, Severe, STOMACH PAIN, 12/13/16) naproxen (Unverified Allergy, Severe, HIVES, 12/13/16) aspirin (Unverified Adverse Reaction, Intermediate, nausea, 12/13/16) Reported Meds & Prescriptions Reported Meds & Active Scripts Active Augmentin (Amoxicillin-Clavulanate) 875-125 Mg Tab 1 Tab PO BID 10 Days Review of Systems Except as stated in HPI: all other systems reviewed are Neg Physical Exam Narrative GENERAL: Well-nourished, well-developed male in no acute distress. Afebrile. Ambulatory. SKIN: Focused skin assessment warm/dry. There is a 1 cm superficial abrasion to the left dorsal, proximal thumb. There is a 1 cm puncture wound to the volar, proximal thumb. HEAD: Normocephalic. EYES: No scleral icterus. No injection or drainage. NECK: Supple, trachea midline. No JVD or lymphadenopathy. CARDIOVASCULAR: Regular rate and rhythm without murmurs, gallops, or rubs. RESPIRATORY: Breath sounds equal bilaterally. No accessory muscle use. MUSCULOSKELETAL: No cyanosis. No significant edema. Limited range of motion of the thumb secondary to pain. Less than 2 second capillary refill distally. Data Data Last Documented VS Vital Signs Date Time Temp Pulse Resp B/P (MAP) Pulse Ox O2 Delivery O2 Flow Rate FiO2 12/13/16 18:08 12/13/16 14:48 98.5 98 18 99 Room Air Orders Orders Amoxicil-Clavulanate (Augmentin) (12/13/16 16:15) Hand, Limited (2vws) (12/13/16 ) Wound Care (12/13/16 16:04) Rabies Vaccine Chick Emb Inj (Rabavert I (12/13/16 16:15) Rabies Immune Globulin Inj (Hyperrab S/D (12/13/16 16:15) MDM Medical Decision Making Medical Screen Exam Complete: Yes Emergency Medical Condition: Yes Medical Record Reviewed: Yes Differential Diagnosis Rabies prophylaxis, tetanus prophylaxis, fracture, tendon injury, muscle spasm, strain, laceration Narrative Course 51-year-old male presents to the emergency room for evaluation of a dog bite to his left hand that occurred just prior to arrival. The dog is not known to the patient and ran off after biting him; he is unsure of its vaccination status. I spoke to the car supplier at the [facility] who recommends proceeding with rabies vaccine and immunoglobulin because the dog will be difficult to locate. Patient is up-to-date on tetanus. His wounds were thoroughly cleansed. The dorsal, gaping hand wound was approximated with Steri-Strips but neither will be closed because of the nature of the wounds. X- ray is negative for any abnormality. He was given first dose of Augmentin in the emergency room. 7 cc of immunoglobulin was injected around the wounds and the remainder was supposed to be injected intramuscular. Patient declined rabies vaccination and refused to receive the rest of the immunoglobulin. He was given risks and benefits of medications and continued to go against my advice. Patient will be leaving AGAINST MEDICAL ADVICE. AMA: The risks of leaving against medical advice without further evaluation treatment were discussed with the patient. These risks include cardiac dysfunction, cardiac dysrhythmia, possible heart attack, possible stroke or . The patient indicated understanding of these risks and appeared to have the capacity to make this decision. He was told to follow up with the health Department as planned or return to the emergency room for worsening symptoms. He was discharged with a prescription for Augmentin. He understands and agrees to plan. Diagnosis Primary Impression: Dog bite of left hand Qualified Codes: S61.452A - Open bite of left hand, initial encounter; W54.0XXA - Bitten by dog, initial encounter Referrals: Primary Care Physician [facility]. Additional Instructions: Rest and drink plenty fluids. Keep wounds clean and dry. Apply triple antibiotic ointment daily. Take Augmentin as directed, until gone. You received your first dose of rabies vaccination today (day 0). Your next dose will be: Day 3: Day 7: Day 14: Go to the health department for further rabies vaccinations. If about the health department is closed, return here. Follow-up with your primary care physician. Return to the emergency room for worsening symptoms. Med/Other Pt SpecificInfo: Prescription(s) given Scripts Amoxicillin-Clavulanate (Augmentin) 875-125 Mg Tab 1 TAB PO BID for Infection for 10 Days, TAB 0 Refills Prov: Serge Cadet MD 12/13/16 Disposition: 07 AGAINST MEDICAL ADVICE Condition: Stable Sonia Gomez Dec 13, 2016 16:43
--- NOTE | 2016-12-13 17:08 | RADRPT ---
EXAM DATE/TIME: 12/13/2016 16:18 [facility] COMPARISON: No previous studies available for comparison. INDICATIONS : Bit by dog today. Laceration. MEDICAL HISTORY : None. SURGICAL HISTORY : None. ENCOUNTER: Initial ACUITY: 1 day PAIN SCORE: 9/10 LOCATION: Left First digit laceration FINDINGS: Two view examination of the left hand demonstrates no dislocation, or fracture. There are soft tissue lucencies in the radial aspect of the hand likely corresponding to the bite injury. No radiopaque fo reign body. The joint spaces are maintained. Bony mineralization is normal. CONCLUSION: 1. No acute fracture or radiopaque foreign bodies. José Wu MD on December 13, 2016 at 17:06 Board Certified Radiologist. This report was verified electronically.
[2016-12-13] MEDS ORDERED: AUGM875T3 PO (17:20)
== END 2016-12-13 18:09 | disposition left against medical advice (07) ==
LOC: PHED 14:39 → PHEFT 18:09
DX: S61.452A Open bite of left hand, initial encounter (principal); W54.0XXA Bitten by dog, initial encounter; F17.210 Nicotine dependence, cigarettes, uncomplicated; I25.2 Old myocardial infarction; Z23 Encounter for immunization
CPT/HCPCS: 73120; 99283

== ENCOUNTER 2017-03-20 12:20 | Emergency (ER) | payer SELFPAY ==
[~2017-03-20] VITALS: Ht 188 cm; Wt 90.0 kg
[~2017-03-20 12:20] MED LIST changes: +AUGM875T3 PO; -HYDR-3533 PO
[2017-03-20 12:23] VITALS: BP 143/65; PULSE 86; RESP 16; TEMP 98.7; O2SAT 99
--- NOTE | 2017-03-20 12:59 | PD ---
HPI Chief Complaint: Injury Time Seen by Provider: 12:34 Travel History International Travel<30 days: No Contact w/Intl Traveler<30days: No Traveled to known affect area: No History of Present Illness HPI 51 year old male here with right hand pain after he fell onto the extremity this morning. He denies head injury or loss of consciousness. He has pain of the dorsal aspect of the fifth metacarpal. He previously fractured this hand several months ago. He denies paresthesias or weakness in the extremity. Pain is worse with palpation of the area movement of the fingers. Relieved with rest. No other injury. PFSH Past Medical History Hx Anticoagulant Therapy: No Arthritis: No Asthma: No Autoimmune Disease: No Blood Disorders: No Bipolar Disorder: Yes Anxiety: Yes Depression: Yes Heart Rhythm Problems: No Cancer: No Cardiovascular Problems: No High Cholesterol: No Chemotherapy: No Chest Pain: No Congestive Heart Failure: No COPD: No Cerebrovascular Accident: No Diabetes: No Diminished Hearing: No Endocrine: No Gastrointestinal Disorders: No GERD: No Glaucoma: No Genitourinary: No Headaches: Yes Hepatitis: No Hiatal Hernia: No Hypertension: No Kidney Stones: No Musculoskeletal: Yes (REPORTS CHRONIC BACK PAIN) Neurologic: No Psychiatric: Yes Reproductive: No Respiratory: Yes (BRONCHITIS) Myocardial Infarction: Yes Radiation Therapy: No Renal Failure: No Schizophrenia: Yes Seizures: No Sickle Cell Disease: No Sleep Apnea: No Thyroid Disease: No Ulcer: No Influenza Vaccination: Yes Past Surgical History Surgical History: No Previous Surgery AICD: No Pacemaker: No Other Surgery: No Social History Alcohol Use: No (-1-2 PER DAY) Tobacco Use: Yes (1/2 PPD) Substance Use: Yes (MARIJUANA) Allergies-Medications (Allergen,Severity, Reaction): Coded Allergies: house dust (Unverified Allergy, Severe, SNEEZE RUNNY NOS4E STUFFY, ) ibuprofen (Unverified Allergy, Severe, STOMACH PAIN, 03/20/17) naproxen (Unverified Allergy, Severe, HIVES, 03/20/17) aspirin (Unverified Adverse Reaction, Intermediate, nausea, 03/20/17) Reported Meds & Prescriptions Reported Meds & Active Scripts Active Ultram (Tramadol HCl) 50 Mg Tab 50 Mg PO Q6H PRN Review of Systems Except as stated in HPI: all other systems reviewed are Neg Physical Exam Narrative GENERAL: Alert, well-appearing male no acute distress SKIN: Warm and dry. HEAD: Normocephalic. EYES: No scleral icterus. No injection or drainage. NECK: Supple, trachea midline. No JVD or lymphadenopathy. CARDIOVASCULAR: Regular rate and rhythm without murmurs, gallops, or rubs. RESPIRATORY: Breath sounds equal bilaterally. No accessory muscle use. GASTROINTESTINAL: Abdomen soft, non-tender, nondistended. MUSCULOSKELETAL: No cyanosis, or edema. right hand: Notable swelling and tenderness over the dorsal aspect of the fifth metacarpal. She has full range of motion and normal sensation of the fingers. Brisk cap refill. BACK: Nontender without obvious deformity. No CVA tenderness. Data Data Last Documented VS Vital Signs Date Time Temp Pulse Resp B/P (MAP) Pulse Ox O2 Delivery O2 Flow Rate FiO2 03/20/17 12:23 98.7 86 16 143/65 (91) 99 Orders Orders Hand, Complete ([id number]) (03/20/17 ) Acetaminophen (Tylenol) (03/20/17 13:15) Splint Or Brace Apply/Monitor (03/20/17 13:08) Ed Discharge Order (03/20/17 13:19) Fiberglass Splint Forearm Adul (03/20/17 ) MDM Medical Decision Making Medical Screen Exam Complete: Yes Emergency Medical Condition: Yes Differential Diagnosis Hand fracture, contusion, sprain Narrative Course 51-year-old male with right hand pain after falling onto the extremities morning. He has notable swelling and tenderness over the fifth metacarpal. He had a previous fracture in the hand several months ago. the extremity is neurovascularly intact. He is able to move all digits and has Equal hand grasp. XRAY right hand: Acute fracture through healing fracture of the fifth metacarpal Patient was splinted in an ulnar gutter splint. Prescription for Ultram. Instructed to follow-up with orthopedic. Diagnosis Primary Impression: Fracture of neck of fifth metacarpal bone Qualified Codes: S62.366A - Nondisplaced fracture of neck of fifth metacarpal bone, right hand, initial encounter for closed fracture Referrals: Orthopedist Additional Instructions: Keep the splint in place until follow-up with the orthopedic doctor. Take [id number] Tylenol as needed for pain. Take the Ultram as needed for severe pain Ice and elevate the extremity. Scripts Tramadol (Ultram) 50 Mg Tab 50 MG PO Q6H Y for PAIN, #15 TAB 0 Refills Prov: Kymberly Cali MD 03/20/17 Disposition: 01 DISCHARGE HOME Condition: Stable Monica De La Torre Mar 20, 2017 12:59
--- NOTE | 2017-03-20 13:12 | RADRPT ---
EXAM DATE/TIME: 03/20/2017 12:50 [facility] COMPARISON: HAND RIGHT COMPLETE ([id number]), November 30, 2016, 17:48. INDICATIONS : Right hand pain; fell this morning. MEDICAL HISTORY : None. SURGICAL HISTORY : Fractured hand on Oct 22 2016. ENCOUNTER: Initial ACUITY: 1 day PAIN SCORE: 10/10 LOCATION: Right 4th & 5th digits; hand. FINDINGS: 3 views of the right hand reveal an acute fracture through a previously fractured fifth metacarpal. T here is some callus formation observed about the fracture site but a linear lucency is seen through t he callus. There is 40 of angulation which is stable. No other fracture is observed. Mild soft tissu e swelling. CONCLUSION: Acute fracture through a healing fracture of the fifth metacarpal. Manuel Titus Jr., MD on March 20, 2017 at 13:08 Board Certified Radiologist. This report was verified electronically.
[2017-03-20] MEDS ORDERED: ACETAMINOPHEN 500 MG CPLT PO ONE (13:15)
[2017-03-20] MEDS ORDERED: TRAM50 PO (13:18)
== END 2017-03-20 13:35 | disposition home or self-care (01) ==
LOC: PHEFT 12:20
DX: S62.366A Nondisplaced fracture of neck of fifth metacarpal bone, right hand, initial encounter for closed fracture (principal); W19.XXXA Unspecified fall, initial encounter
CPT/HCPCS: 29125; 73130

== ENCOUNTER 2017-08-31 12:58 | Emergency (ER) | payer OTHER ==
[~2017-08-31 12:58] MED LIST changes: -AUGM875T3 PO; +TRAM50 PO
[2017-08-31 13:07] VITALS: BP 131/72; PULSE 84; RESP 16; TEMP 97.5; O2SAT 98
[2017-08-31] MEDS ORDERED: SODIUM CHLOR 0.9% 1000 ML INJ 1,000 ML IV SCH (14:07)
--- NOTE | 2017-08-31 14:12 | PD ---
HPI Chief Complaint: Lump, Cyst, Hernia Time Seen by Provider: 13:59 Travel History International Travel<30 days: No Contact w/Intl Traveler<30days: No Traveled to known affect area: No History of Present Illness HPI 51-year-old male here for evaluation of painful lump in his right groin. Patient first noticed the pain in the lump about an hour prior to arrival. Pain is severe, constant, worse with movements and palpation. He has felt nauseous but has not vomited. Denies history of abdominal surgeries. PFSH Past Medical History Hx Anticoagulant Therapy: No Arthritis: No Asthma: No Autoimmune Disease: No Blood Disorders: No Bipolar Disorder: Yes Anxiety: Yes Depression: Yes Heart Rhythm Problems: No Cancer: No Cardiovascular Problems: No High Cholesterol: No Chemotherapy: No Chest Pain: No Congestive Heart Failure: No COPD: No Cerebrovascular Accident: No Diabetes: No Diminished Hearing: No Endocrine: No Gastrointestinal Disorders: No GERD: No Glaucoma: No Genitourinary: No Headaches: Yes Hepatitis: No Hiatal Hernia: No Hypertension: No Kidney Stones: No Musculoskeletal: Yes (REPORTS CHRONIC BACK PAIN) Neurologic: No Psychiatric: Yes Reproductive: No Respiratory: Yes (BRONCHITIS) Myocardial Infarction: Yes Radiation Therapy: No Renal Failure: No Schizophrenia: Yes Seizures: No Sickle Cell Disease: No Sleep Apnea: No Thyroid Disease: No Ulcer: No Past Surgical History AICD: No Pacemaker: No Other Surgery: No Social History Alcohol Use: No (-1-2 PER DAY) Tobacco Use: Yes (1/2 PPD) Substance Use: Yes (MARIJUANA) Allergies-Medications (Allergen,Severity, Reaction): Coded Allergies: house dust (Verified Allergy, Severe, SNEEZE RUNNY NOS4E STUFFY, 08/31/17) ibuprofen (Verified Allergy, Severe, STOMACH PAIN, 08/31/17) naproxen (Verified Allergy, Severe, HIVES, 08/31/17) aspirin (Verified Adverse Reaction, Intermediate, nausea, 08/31/17) Reported Meds & Prescriptions Reported Meds & Active Scripts Active No Active Prescriptions or Reported Medications Review of Systems Except as stated in HPI: all other systems reviewed are Neg Physical Exam Narrative GENERAL: Well-developed, well-nourished, moderate distress secondary to pain. SKIN: Focused skin assessment warm/dry. No rash. HEAD: Atraumatic. Normocephalic. EYES: Pupils equal and round. No scleral icterus. No injection or drainage. ENT: No nasal bleeding or discharge. Mucous membranes pink and moist. NECK: Trachea midline. No JVD. CARDIOVASCULAR: Regular rate and rhythm. No murmur appreciated. RESPIRATORY: No accessory muscle use. Clear to auscultation. Breath sounds equal bilaterally. GASTROINTESTINAL: Abdomen soft, non-tender, nondistended. : Right inguinal region with golf ball size /reducible/direct inguinal hernia. After reduction there is still tenderness along the inguinally. The rest of his exam is within normal limits with normal scrotum without masses or tenderness. MUSCULOSKELETAL: No obvious deformities. No clubbing. No cyanosis. No edema. NEUROLOGICAL: Awake and alert. No obvious cranial nerve deficits. Motor grossly within normal limits. Normal speech. PSYCHIATRIC: Appropriate mood and affect; insight and judgment normal. Data Data Last Documented VS Vital Signs Date Time Temp Pulse Resp B/P (MAP) Pulse Ox O2 Delivery O2 Flow Rate FiO2 08/31/17 14:26 74 16 127/84 (98) 99 Room Air 08/31/17 13:07 97.5 Orders Orders Complete Blood Count With Diff (08/31/17 14:07) Comprehensive Metabolic Panel (08/31/17 14:07) Lipase (08/31/17 14:07) Prothrombin Time / Inr (Pt) (08/31/17 14:07) Act Partial Throm Time (Ptt) (08/31/17 14:07) Ct Abd/Pel W Iv Contrast(Rout) (08/31/17 14:07) Iv Access Insert/Monitor (08/31/17 14:07) Ecg Monitoring (08/31/17 14:07) Oximetry (08/31/17 14:07) Sodium Chlor 0.9% 1000 Ml Inj (Ns 1000 M (08/31/17 14:07) Sodium Chloride 0.9% Flush (Ns Flush) (08/31/17 14:15) Morphine Inj (Morphine Inj) (08/31/17 14:30) Iohexol 350 Inj (Omnipaque 350 Inj) (08/31/17 15:58) Labs Laboratory Tests Test 08/31/17 14:15 White Blood Count 6.8 TH/MM3 Red Blood Count 5.82 MIL/MM3 Hemoglobin 13.3 GM/DL Hematocrit 42.0 % Mean Corpuscular Volume 72.1 FL Mean Corpuscular Hemoglobin 22.8 PG Mean Corpuscular Hemoglobin Concent 31.6 % Red Cell Distribution Width 15.5 % Platelet Count 119 TH/MM3 Mean Platelet Volume 9.2 FL Neutrophils (%) (Auto) 53.1 % Lymphocytes (%) (Auto) 34.1 % Monocytes (%) (Auto) 8.1 % Eosinophils (%) (Auto) 3.7 % Basophils (%) (Auto) 1.0 % Neutrophils # (Auto) 3.5 TH/MM3 Lymphocytes # (Auto) 2.3 TH/MM3 Monocytes # (Auto) 0.6 TH/MM3 Eosinophils # (Auto) 0.3 TH/MM3 Basophils # (Auto) 0.1 TH/MM3 CBC Comment AUTO DIFF Differential Comment AUTO DIFF CONFIRMED Platelet Estimate LOW Platelet Morphology Comment NORMAL Prothrombin Time 9.6 SEC Prothromb Time International Ratio 0.9 RATIO Activated Partial Thromboplast Time 23.8 SEC Blood Urea Nitrogen 23 MG/DL Creatinine 1.10 MG/DL Random Glucose 59 MG/DL Total Protein 7.0 GM/DL Albumin 3.6 GM/DL Calcium Level 8.3 MG/DL Alkaline Phosphatase 61 U/L Aspartate Amino Transf (AST/SGOT) 16 U/L Alanine Aminotransferase (ALT/SGPT) 21 U/L Total Bilirubin 0.7 MG/DL Sodium Level 141 MEQ/L Potassium Level 3.8 MEQ/L Chloride Level 111 MEQ/L Carbon Dioxide Level 23.3 MEQ/L Anion Gap 7 MEQ/L Estimat Glomerular Filtration Rate 86 ML/MIN Lipase 219 U/L [facility] Medical Decision Making Medical Screen Exam Complete: Yes Emergency Medical Condition: Yes Differential Diagnosis Reducible inguinal hernia, fat incarceration Narrative Course Vital signs reviewed. CBC is remarkable for platelets 119, otherwise unremarkable. CMP is essentially unremarkable. Lipase is 219. CT abdomen pelvis: CONCLUSION: Negative for an acute process. I do not see an etiology for the right inguinal pain. Patient was made aware of all findings. He does have a reducible right inguinal hernia. He is stable for discharge home with outpatient follow-up with a primary care physician or general surgeon this week. I advised that he purchase a truss. He was informed on when to return to the emergency department. He verbalizes understanding and agreement with plan. Diagnosis Primary Impression: Reducible right inguinal hernia Referrals: Rafa Ramires MD 3 days General Surgeon [facility] 3 days Primary Care Physician 3 days Additional Instructions: Follow-up with a primary care physician this week. Follow-up with general surgeon Dr. Ramires or a general surgeon of your choice this week. Return to the emergency department for worsening symptoms or any other concerns. Scripts Ondansetron Odt (Zofran Odt) 4 Mg Tab 4 MG SL Q8HR Y for Nausea/Vomiting, #20 TAB 0 Refills Prov: Gabino Ruiz MD 08/31/17 Hydrocodone-Acetaminophen (Hydrocodone-Acetaminophen) 5-325 mg Tab 1 TAB PO Q6H Y for PAIN, #12 TAB 0 Refills Prov: Gabino Ruiz MD 08/31/17 Disposition: 01 DISCHARGE HOME Condition: Stable Gabino Ruiz MD August 31, 2017 14:12
[2017-08-31] MEDS ORDERED: SODIUM CHLORIDE 0.9% FLUSH 10 ML FLUSH IV FLUSH PRN (14:15)
[2017-08-31] MEDS ORDERED: MORPHINE SULFATE 2 MG/ML SYRINGE IV PUSH ONE (14:15)
[2017-08-31 14:25] VITALS: O2SAT 100
[2017-08-31 14:26] VITALS: BP 127/84; PULSE 74; RESP 16; O2SAT 99
[2017-08-31] MEDS ORDERED: MORPHINE SULFATE 4 MG/ML INJ IV PUSH ONE (14:30)
[2017-08-31 14:35] LABS: AUTOMATED NEUTROPHIL # 3.5 TH/MM3 (1.8-7.7); BASOPHIL # 0.1 TH/MM3 (0-0.2); EOSINOPHIL # 0.3 TH/MM3 (0-0.4); EOSINOPHIL % 3.7 % (0.0-4.0); HEMOGLOBIN 13.3 GM/DL (13.0-17.0); LYMPH % 34.1 % (9.0-44.0); LYMPHOCYTE # 2.3 TH/MM3 (1.0-4.8); MEAN CELL VOLUME 72.1 FL (80.0-100.0); MEAN CORPUSCULAR HEMOGLOBIN 22.8 PG (27.0-34.0); MEAN CORPUSCULAR HGB CONC 31.6 % (32.0-36.0); MEAN PLATELET VOLUME 9.2 FL (7.0-11.0); MONO % 8.1 % (0.0-8.0); MONOCYTE # 0.6 TH/MM3 (0-0.9); NEUT % 53.1 % (16.0-70.0); PLATELET COUNT 119 TH/MM3 (150-450); RED BLOOD COUNT 5.82 MIL/MM3 (4.50-5.90); RED CELL DISTRIBUTION WIDTH 15.5 % (11.6-17.2); WHITE BLOOD COUNT 6.8 TH/MM3 (4.0-11.0)
[2017-08-31 14:38] LABS: CHLORIDE 111 MEQ/L (98-107); SODIUM (NA) 141 MEQ/L (136-145)
[2017-08-31 14:41] LABS: CALCIUM 8.3 MG/DL (8.5-10.1)
[2017-08-31 14:42] LABS: ALBUMIN 3.6 GM/DL (3.4-5.0); BICARBONATE 23.3 MEQ/L (21.0-32.0); BLOOD UREA NITROGEN 23 MG/DL (7-18); GLUCOSE,RANDOM 59 MG/DL (74-106)
[2017-08-31 14:45] LABS: ALT (GPT) 21 U/L (12-78); AST (GOT) 16 U/L (15-37); GLOMERULAR FILTRATION RATE 86 ML/MIN (>89)
[2017-08-31 14:46] LABS: TOTAL BILIRUBIN ADULT 0.7 MG/DL (0.2-1.0)
[2017-08-31 14:48] LABS: ALKALINE PHOSPHATASE 61 U/L (45-117)
[2017-08-31] MEDS ORDERED: IOHEXOL 350 MG/ML 10 ML VIAL (for RAD DIAG) IVCONTRAST ONE (15:58)
[2017-08-31 16:00] LABS: INTERNATIONAL NORMALIZED RATIO 0.9 RATIO; PROTHROMBIN TIME - PATIENT 9.6 SEC (9.8-11.6)
--- NOTE | 2017-08-31 16:32 | RADRPT ---
EXAM DATE/TIME: 08/31/2017 15:51 [facility] COMPARISON: CT ABDOMEN & PELVIS W CONTRAST, December 27, 2015, 16:13. INDICATIONS : Right inguinal pain. IV CONTRAST: 95 cc Omnipaque 350 (iohexol) IV ORAL CONTRAST: No oral contrast ingested. RADIATION DOSE: 10.40 CTDIvol (mGy) MEDICAL HISTORY : Hypertension. SURGICAL HISTORY : None. ENCOUNTER: Initial ACUITY: 1 day PAIN SCALE: 5/10 LOCATION: Right inguinal TECHNIQUE: Volumetric scanning of the abdomen and pelvis was performed. Using automated exposure control and ad justment of the mA and/or kV according to patient size, radiation dose was kept as low as reasonably achievable to obtain optimal diagnostic quality images. DICOM format image data is available electro nically for review and comparison. FINDINGS: Minimal nonspecific bibasilar parenchymal changes The liver is free of focal defects The spleen and pancreas unremarkable The adrenal glands appear normal Symmetrical renal function without renal mass Moderate stool in ascending colon without inflammatory changes about the cecum Descending colon is unremarkable In the pelvis, bladder, prostate and seminal vesicles are unremarkable. Multiple phleboliths in the pelvis There is no hernia. There is inguinal adenopathy. Review of bone windows reveals only degenerative changes. CONCLUSION: Negative for an acute process. I do not see an etiology for the right inguinal pain Tobi Saul MD FACR on August 31, 2017 at 16:26 Board Certified Radiologist. This report was verified electronically.
[2017-08-31] MEDS ORDERED: HYDR-3516 PO (16:41)
[2017-08-31] MEDS ORDERED: ZOFR4TAB3 SL (16:41)
== END 2017-08-31 16:55 | disposition home or self-care (01) ==
LOC: PHED 12:58
DX: K40.90 Unilateral inguinal hernia, without obstruction or gangrene, not specified as recurrent (principal); F20.9 Schizophrenia, unspecified; F31.9 Bipolar disorder, unspecified; F41.9 Anxiety disorder, unspecified; I10 Essential (primary) hypertension; I25.2 Old myocardial infarction; F17.200 Nicotine dependence, unspecified, uncomplicated; F12.90 Cannabis use, unspecified, uncomplicated
CPT/HCPCS: 74177; 80053; 83690; 85025; 85610; 85730; 96361; 96374; 99284; J2270; J7030; Q9967